=== PATIENT | female | born 1990 | race Caucasian/White ===

== ENCOUNTER 2017-05-26 13:07 | Emergency (ER) | payer SELFPAY ==
[2017-05-26 14:01] VITALS: BP 118/58; PULSE 71
[2017-05-26 14:04] VITALS: O2SAT 98
--- NOTE | 2017-05-26 14:04 | ERPHSYRPT ---
- History of Present Illness Time Seen by Provider: 05/26/17 13:53 Source: patient Patient Subjective Stated Complaint: PT REPORTS DENTAL PAIN ON RIGHT SIDE OF MOUTH-REPORTS FEELS LIKE THERE IS PRESSURE ON FRONT TEETH-REPORTS EARACHE TO RIGHT EAR-DENIES DRAINAGE-UNSURE OF FEVER Triage Nursing Assessment: PT PINK WARM ET [id number] CARRIES NOTED-NO OBVIOUS SWELLING NOTED Physician History: CC: toothache Hx: 27 y/o patient of Dr Darling with right upper toothache for a few days. Nt better with ibuprofen. She has had problems with this tooth in the past and may need root canal. Called dentist but can not be seen until Thur. She is on wait list. No fever, diff breathing or vomiting. ALL: Sulfa LMP 1 week ago Meds: None Works [place] Severity: moderate ENT Location: dental Allergies/Adverse Reactions: Sulfa (Sulfonamide Antibiotics) Allergy (Intermediate, Verified 05/26/17 13:16) Rash raspberry Allergy (Verified 05/26/17 13:16) strawberry Allergy (Verified 05/26/17 13:16) adhesive tape Adverse Reaction (Verified 05/26/17 13:16) Hx Tetanus, Diphtheria Vaccination/Date Given: Yes Hx Influenza Vaccination/Date Given: Yes (2015) Hx Pneumococcal Vaccination/Date Given: No Immunizations Up to Date: Yes - Review of Systems Constitutional: No Fever, No Chills Ears, Nose, & Throat: Mouth Pain, No Throat Pain Respiratory: No Dyspnea Abdominal/Gastrointestinal: No Nausea, No Vomiting Skin: No Rash - Past Medical History Pertinent Past Medical History: Yes Neurological History: Seizures ENT History: No Pertinent History Cardiac History: No Pertinent History Respiratory History: No Pertinent History Endocrine Medical History: No Pertinent History Musculoskeletal History: Arthritis GI Medical History: No Pertinent History History: No Pertinent History Psycho-Social History: No Pertinent History Female Reproductive Disorders: Other Other Medical History: Ovarian Cyst, REMOVED 06/2015. STATES NO SEIZURES SINCE LITTLE. - Past Surgical History Past Surgical History: Yes Neuro Surgical History: No Pertinent History Cardiac: No Pertinent History Respiratory: No Pertinent History Gastrointestinal: Cholecystectomy Genitourinary: No Pertinent History Musculoskeletal: No Pertinent History Female Surgical History: Other Other Surgical History: Ovarian Cyst removal, left ovary, partial ovary removal at time of sx 06/2015 - Social History Smoking Status: Former smoker How long have you smoked: 1.5 years Exposure to second hand smoke: Yes Drug Use: none Patient Lives Alone: No Significant Family History: diabetes - Female History Hx Last Menstrual Period: LAST WK - Nursing Vital Signs Nursing Vital Signs: Initial Vital Signs Temperature 98.4 F 05/26/17 13:11 Pulse Rate 74 05/26/17 13:11 Respiratory Rate 20 05/26/17 13:11 Blood Pressure 122/66 05/26/17 13:11 O2 Sat by Pulse Oximetry 98 05/26/17 13:11 Pain Scale Pain Intensity 10 - Physical Exam General Appearance: alert Eye Exam: bilateral eye: PERRL, EOMI Throat Exam: pharynx normal, dental tenderness (right upper lateral incisor, no swelling, not loose, no facial cellulitis) Neck Exam: normal inspection, non-tender, supple Cardiovascular/Respiratory Exam: normal breath sounds, regular rate/rhythm Neurologic Exam: alert, oriented x 3, cooperative Skin Exam: warm, dry, No rash SpO2 Interpretation: normal SpO2: 98 Oxygen Delivery: Room Air - Course Nursing assessment & vital signs reviewed: Yes - Progress Progress Note: 05/26/17 14:02 Advised dental follow up. Counseled pt/family regarding: diagnosis, need for follow-up - Departure Time of Disposition: 14:02 Departure Disposition: Home Clinical Impression: Toothache Condition: Stable Critical Care Time: No Referrals: LILIAN PHELAN [Primary Care Provider] - Instructions: Dental Pain Additional Instructions: Rx pen Rx ibuprofen Rx codiene Follow up with dentist as soon as possible Prescriptions: Ibuprofen 600 mg PO Q6H PRN PRN #24 tablet PRN Reason: Pain Codeine Phosphate/APAP #3 [Tylenol #3 Tablet] 1 tab PO Q4-6HPRN PRN #10 tablet PRN Reason: Pain Penicillin V Potassium 500 mg PO QID #40 tablet
== END 2017-05-26 14:20 | disposition home or self-care (01) ==
LOC: ED 13:07
DX: K08.89 Other specified disorders of teeth and supporting structures (principal)
CPT/HCPCS: 99282

== ENCOUNTER 2018-03-05 15:37 | Observation (INO) | payer MEDICAID ==
[2018-03-05 16:30] VITALS: BP 118/68; PULSE 88
[2018-03-05 17:21] LABS: Amphetamine,Urine NEGATIVE (NEGATIVE); Barbiturate,Urine NEGATIVE (NEGATIVE); Benzodiazepine,Urine NEGATIVE (NEGATIVE); Cocaine,Urine NEGATIVE (NEGATIVE); Methadone,Urine NEGATIVE (NEGATIVE); Opiate,Urine NEGATIVE (NEGATIVE); PCP,Urine NEGATIVE (NEGATIVE); THC,Urine NEGATIVE (NEGATIVE)
== END 2018-03-05 20:20 | disposition home or self-care (01) ==
LOC: UNDOADMOB 15:37 → OB 15:37 → UNDODISOB 20:20
PROVIDERS: ADMIT Family Medicine; ATTEND Family Medicine
DX: Z34.81 Encounter for supervision of other normal pregnancy, first trimester (principal)
CPT/HCPCS: 80307; G0378

== ENCOUNTER 2018-03-14 02:59 | Inpatient (IN) | payer MEDICAID ==
[2018-03-14 04:15] LABS: Amphetamine,Urine NEGATIVE (NEGATIVE); Barbiturate,Urine NEGATIVE (NEGATIVE); Benzodiazepine,Urine NEGATIVE (NEGATIVE); Cocaine,Urine NEGATIVE (NEGATIVE); Methadone,Urine NEGATIVE (NEGATIVE); Opiate,Urine NEGATIVE (NEGATIVE); PCP,Urine NEGATIVE (NEGATIVE); THC,Urine NEGATIVE (NEGATIVE)
[2018-03-14 04:17] LABS: BASOPHIL % 0.2 % (0.0-0.4); Basophil (Absolute #) 0.02 (0-0.4); Eosinophil % 1.7 % (0.00-5.0); Eosinophil (Absolute #) 0.14 (0-0.5); Granulocyte Absolute (ANC) 5.91 (1.4-6.9); Granulocytes % 70.6 % (36.0-66.0); Hematocrit 37.7 % (35-47); Lymphocyte (Absolute #) 1.32 (1.0-4.6); Lymphocytes % 15.8 % (24.0-44.0); Mean Cell Volume 94.5 fl (78-100); Mean Corpuscular Hgb Concent. 34.5 g/dl (32-36); Mean Platelet Volume 11.8 fl (6-9.5); Monocyte (Absolute #) 0.98 (0.0-1.3); Monocytes % 11.7 % (0.0-12.0); Platelet Count 206 K/mm3 (150-450); Red Blood Count 3.99 M/mm3 (4.1-5.4); Red Cell Distribution Width 12.6 % (11.5-14.0); White Blood Count 8.4 K/mm3 (4.0-10.5)
[2018-03-14 04:18] LABS: Mean Corpuscular Hemoglobin 32.5 pg (26-32)
[2018-03-14] MEDS ORDERED: PITOCIN 30 UNITS/ LR 500 ML 500 ML IV SCH (04:30)
[2018-03-14] MEDS ORDERED: Lactated Ringers 1,000 ML IV ONE (04:35)
[2018-03-14] MEDS: Lactated Ringers 1,000 ML IV SCH (04:38)
[2018-03-14] MEDS ORDERED: XYLOCAINE 1% HCL 20 ML MDV ONE (04:47)
[2018-03-14] MEDS ORDERED: Dermoplast Spray TP PRN (07:06)
[2018-03-14] MEDS ORDERED: Mylicon 80MG PO PRN (07:06)
[2018-03-14] MEDS ORDERED: Dulcolax 10 MG SUPP PR PRN (07:06)
[2018-03-14] MEDS ORDERED: Anucort-HC SUPPOSITORY PR PRN (07:06)
[2018-03-14] MEDS ORDERED: TUCKS TP PRN (07:06)
[2018-03-14] MEDS ORDERED: CORTISONE 1% CREAM TP PRN (07:06)
[2018-03-14] MEDS ORDERED: LANSINOH 40 GM TOP PRN (07:06)
[2018-03-14] MEDS ORDERED: NORCO 5/325 MG PO PRN (07:06)
[2018-03-14] MEDS: MOTRIN 400 MG PO PRN (07:24)
--- NOTE | 2018-03-14 08:48 | XRAY ---
Indication: Pain with bleeding. Limited 2-dimensional OB ultrasound performed. Comparison: October 31, 2017. Again there is a single viable intrauterine now in cephalic presentation. heart rate 122 BPM. Visualized stomach and bladder are unremarkable. Placenta is maternal left extending anteriorly and posterior without abruption/previa. No abnormal retroplacental fluid collection. BPD measures 8.91 cm corresponding to 36 weeks 0 days. HC measures 32.67 cm corresponding to 37 weeks 0 days. AC measures 34.06 cm corresponding to 38 weeks 0 days. FL measures 7.60 cm corresponding to 38 weeks 6 days. MANDY is 10.1 cm. Impression: Again single viable intrauterine with mean gestational age 37 weeks 3 days. There has been progression of with fetus now measuring 9 days smaller. Nothing acute. Comment: Preliminary report was given.
[2018-03-14] MEDS: Colace 100 MG PO SCH ×2 (16:39→21:35)
[2018-03-14] MEDS: FERREX 150 PO SCH (16:39)
[2018-03-15] MEDS ORDERED: CEFAZOLIN 2 GM-D5W BAG** 2 GM/50 ML ML IV SCH (04:20)
[2018-03-15] MEDS ORDERED: Sensorcaine 0.25% 10 ML ONE (05:39)
[2018-03-15] MEDS ORDERED: Lactated Ringers 2,000 ML IV ONE (05:39)
[2018-03-15 05:43] LABS: BASOPHIL % 0.1 % (0.0-0.4); Basophil (Absolute #) 0.01 (0-0.4); Eosinophil % 1.9 % (0.00-5.0); Eosinophil (Absolute #) 0.16 (0-0.5); Granulocyte Absolute (ANC) 6.24 (1.4-6.9); Granulocytes % 74.8 % (36.0-66.0); Hematocrit 32.7 % (35-47); Hemoglobin 11.1 gm/dl (12.0-16.0); Lymphocyte (Absolute #) 1.06 (1.0-4.6); Lymphocytes % 12.7 % (24.0-44.0); Mean Cell Volume 96.5 fl (78-100); Mean Corpuscular Hemoglobin 32.7 pg (26-32); Mean Corpuscular Hgb Concent. 33.9 g/dl (32-36); Mean Platelet Volume 11.7 fl (6-9.5); Monocyte (Absolute #) 0.88 (0.0-1.3); Monocytes % 10.5 % (0.0-12.0); Platelet Count 175 K/mm3 (150-450); Red Blood Count 3.39 M/mm3 (4.1-5.4); Red Cell Distribution Width 12.6 % (11.5-14.0); White Blood Count 8.4 K/mm3 (4.0-10.5)
[2018-03-15] MEDS: Lactated Ringers 1,000 ML IV SCH ×2 (05:49→06:57)
[2018-03-15 06:13] LABS: INR 0.91 (0.8-3.0)
[2018-03-15 06:16] LABS: PTT 25.2 SECONDS (25.3-37.0)
[2018-03-15] MEDS ORDERED: Pepcid 20 MG VIAL IV SCH (06:30)
[2018-03-15] MEDS ORDERED: Reglan 10 MG/2 ML IV SCH (06:30)
--- NOTE | 2018-03-15 09:41 | OP ---
SURGERY DATE/TIME: 03/15/2018815 PREOPERATIVE DIAGNOSIS: Desires permanent sterilization. POSTOPERATIVE DIAGNOSIS: Desires permanent sterilization. PROCEDURES: bilateral tubal ligation. SURGEON: Loc Peguero M.D. ANESTHESIA: Spinal by Jaime Romero CRNA. ESTIMATED BLOOD LOSS: Minimal. SPECIMENS: Bilateral fallopian tube segments. DESCRIPTION OF PROCEDURE: After informed, written consent was obtained, the patient was taken to the OP. Prior to her signing consent, I discussed with her risk of bleeding, risk of infection, damage to surrounding tissues and accepted failure rate of 1:300 and permanent nature of this procedure and she elected to proceed. She underwent spinal anesthesia and was prepped and draped in usual sterile fashion. 0.25% Marcaine used to infiltrate the site of incision with 6 cc used in total. Infraumbilical horizontal skin incision was made by knife and carried down to the subcutaneous fat to the fascia. The fascia was grasped with hemostats and carefully entered using Metzenbaum scissors. Next, the left fallopian tube was identified, pulled up and grasped with a Yves. It was followed down to the fimbrial edge to insure that it was indeed fallopian tube. Next, electrocautery was used to create a window in the mesoappendix and chromic tie was passed through the opening and proximal-distal tube segments were then ligated with suture. The interceding tube segment dissected free with Metzenbaum scissors and the free edge of the tube was cauterized with electrocautery. Good hemostasis was achieved. Next, the right fallopian tube was identified and carried down to the fimbrial edge in the same fashion and ligated, cut and burned just the same as the left side. Good hemostasis was achieved. There were no complications. Finally the fascia was closed with 0 Vicryl in running fashion with good closure and good hemostasis. The subcutaneous fat was irrigated with warm, sterile saline and the skin layer was closed with 4-0 undyed Vicryl in running subcuticular fashion. Steri-Strips and occlusive dressing were placed over the incision. The patient was transferred to the recovery room in good condition.
[2018-03-15] MEDS ORDERED: DEMEROL 75 MG IM PRN (10:27)
[2018-03-15] MEDS ORDERED: Phenergan 25 MG INJ IM PRN (10:27)
[2018-03-15] MEDS: TYLENOL EXTRA STRENGTH 500 MG PO PRN ×3 (10:30→22:01)
[2018-03-15] MEDS ORDERED: Dextrose 5%-Lr IV Solution 1000 ML 1,000 ML IV SCH (10:30)
[2018-03-15 11:31] LABS: Appearance CLEAR (CLEAR); Bilirubin NEGATIVE (NEGATIVE); Blood 50 Ery/ul (0-5); Glucose NEGATIVE (NEGATIVE); Ketones NEGATIVE (NEGATIVE); Leukocyte Esterase TRACE (NEGATIVE); Nitrite NEGATIVE (NEGATIVE); Protein,Urine Dip NEGATIVE (Negative); Urobilinogen NORMAL mg/dL (0-1)
[2018-03-15 11:32] LABS: Bacteria FEW /HPF (NEGATIVE); Epithelial Cells FEW /HPF (FEW); RBC 0-2 /HPF (0-2)
[2018-03-15] MEDS: MOTRIN 400 MG PO PRN ×2 (12:36→18:34)
[2018-03-15] MEDS ORDERED: Marcaine Spinal Ampul IJ ONE (14:34)
[2018-03-15] MEDS ORDERED: Xylocaine-Mpf 2% 5 Ml Vial IJ ONE (14:34)
[2018-03-15] MEDS: FERREX 150 PO SCH (14:54)
[2018-03-15] MEDS: Colace 100 MG PO SCH ×2 (14:54→21:57)
[2018-03-15 17:10] VITALS: O2SAT 100
--- NOTE | 2018-03-16 08:06 | PCM.DS ---
Discharge Summary Date of Admission: 03/14/18 04:30 Admitting Physician: RADHA HOYOS Primary Care Provider: RADHA HOYOS Allergies Allergies Sulfa (Sulfonamide Antibiotics) Allergy (Intermediate, Verified 03/05/18 16:38) Rash raspberry Allergy (Verified 03/05/18 16:38) hives and throat closes strawberry Allergy (Verified 03/05/18 16:38) hives and throat closes adhesive tape Adverse Reaction (Verified 03/05/18 16:38) blisters on skin Hospital Summary - Hospital Course Hospital Course: doing well at this time, had on 03/14 and pp tubal on 03/15. mild lochia, pain controlled on tylenol and ibuprofen. . - Vitals & Intake/Output Vital Signs: Vital Signs Temperature 97.7 F 03/16/18 02:00 Pulse Rate 88 03/16/18 02:00 Respiratory Rate 20 03/16/18 02:00 Blood Pressure 104/64 03/16/18 02:00 O2 Sat by Pulse Oximetry 100 03/15/18 13:06 Intake & Output: Intake & Output 03/13/18 03/14/18 03/15/18 03/16/18 11:59 11:59 11:59 11:59 Intake Total 687 Balance 687 Weight 107.955 kg 107.955 kg - Lab Result Diagrams: 03/15/18 05:32 Lab Results-Last 24 Hrs: Lab Results-Last 24 Hours 03/15/18 Range/Units 09:35 Ur Collection Type CATH Urine Color YELLOW (YELLOW) Urine Appearance CLEAR (CLEAR) Urine pH 8.0 (5-6) Ur Specific [place] 1.010 (1.005-1.025) Urine Protein NEGATIVE (Negative) Urine Ketones NEGATIVE (NEGATIVE) Urine Blood 50 (0-5) Koffi/ul Urine Nitrite NEGATIVE (NEGATIVE) Urine Bilirubin NEGATIVE (NEGATIVE) Urine Urobilinogen NORMAL (0-1) mg/dL Ur Leukocyte Esterase TRACE (NEGATIVE) Urine Microscopic RBC 0-2 (0-2) /HPF Urine Microscopic WBC 2-5 (0-5) /HPF Ur Epithelial Cells FEW (FEW) /HPF Urine Bacteria FEW (NEGATIVE) /HPF Urine Glucose NEGATIVE (NEGATIVE) mg/dL Specimen Received 03/15 1030 Micro Results-Entire Visit: Microbiology 03/15/18 09:35 Urine Culture - Preliminary Urine, Catheterized NO GROWTH TO DATE Discharge Exam General Appearance: no apparent distress, alert Respiratory Exam: normal breath sounds, lungs clear, No respiratory distress Cardiovascular Exam: regular rate/rhythm, normal heart sounds Gastrointestinal/Abdomen Exam: soft, other (infraumbilical incision clean, dry, intact), No tenderness, No mass Extremity Exam: normal inspection, normal range of motion Final Diagnosis/Problem List - Final Discharge Diagnosis/Problem (1) Vaginal delivery Current Visit: Yes Status: Acute (2) Tubal ligation status Current Visit: Yes Status: Acute - Discharge Disposition: Home, Self-Care Condition: Stable Prescriptions: No Action Pedi Multivit No.25/Folic Acid [Flintstones Multivit Chew Tab] 300 mcg PO DAILY Follow up with: RADHA HOYOS MD [Primary Care Provider] - 1 Week
[2018-03-16] MEDS: TYLENOL EXTRA STRENGTH 500 MG PO PRN (08:19)
[2018-03-16] MEDS: FERREX 150 PO SCH (10:44)
[2018-03-16] MEDS: Colace 100 MG PO SCH (10:44)
[2018-03-16] MEDS: MOTRIN 400 MG PO PRN (10:46)
[2018-03-16 10:49] VITALS: BP 119/83; PULSE 74
[2018-03-16] MEDS ORDERED: Versed 2 MG/2 ML Injection IV ONE (16:30)
== END 2018-03-16 13:00 | disposition home or self-care (01) | DRG 767 ==
LOC: OB 02:59 → OBSVTOIN 04:30
PROVIDERS: ADMIT Family Medicine; ATTEND Family Medicine
PROC: 10E0XZZ Delivery of Products of Conception, External Approach (ICD-10-PCS; principal; 2018-03-14)
PROC: 0UB70ZZ Excision of Bilateral Fallopian Tubes, Open Approach (ICD-10-PCS; 2018-03-15)
DX: O80 Encounter for full-term uncomplicated delivery (principal); Z3A.38 38 weeks gestation of pregnancy; Z37.0 Single live birth; Z30.2 Encounter for sterilization
CPT/HCPCS: 36415; 76805; 80307; 81000; 85025; 85610; 85730; 87086; 88302; 94799; G0378; J0690; J2250; J2590; A9270-GY

== ENCOUNTER 2023-02-25 21:01 | Emergency (ER) | payer OTHER ==
--- NOTE | 2023-02-25 21:04 | ERPHSYRPT ---
- History of Present Illness Time Seen by Provider: 02/25/23 21:04 Source: patient, EMS, other (Paramedics gave independent history) Exam Limitations: no limitations Physician History: Patient was moving around and felt a pop in her mid spine at the lumbar level. There was pain initially but then she stopped doing the activity and sat in a chair. Approximately 45 minutes prior to arrival she got up to get into a car and was having excruciating pain. She has had this type of thing in the past. She has had no back surgeries. She is not on any medication. She is allergic to sulfa raspberries, strawberries and adhesive tape. She denies chest pain and she denies shortness of breath. She has no abdominal pain. She has no urinary tract infection symptoms. Patient was brought into the emergency department by the paramedics. Timing/Duration: today Method of Injury: unknown Quality: sharp, stabbing Back Pain Location: lumbar spine, paraspinous muscles Severity of Pain-Max: moderate Severity of Pain-Current: moderate Modifying Factors: Improves With: movement Associated Symptoms: lower back pain, muscle spasms, No urinary incontinence, No loss of bowel control, No nausea, No vomiting, No numbness in legs/feet, No weakness, No sensory/motor loss Previous symptoms: same symptoms as today Allergies/Adverse Reactions: Sulfa (Sulfonamide Antibiotics) Allergy (Intermediate, Verified 03/17/21 12:05) Rash raspberry Allergy (Verified 03/17/21 12:05) Tightness of Throat hives and throat closes strawberry Allergy (Verified 03/17/21 12:05) Hives hives and throat closes adhesive tape Adverse Reaction (Verified 03/17/21 12:05) blisters on skin Hx Tetanus, Diphtheria Vaccination/Date Given: Yes Hx Influenza Vaccination/Date Given: Yes (2015) Hx Pneumococcal Vaccination/Date Given: No Travel Risk - International Travel Have you traveled outside of the country in past 3 weeks: No - Coronavirus Screening Are you exhibiting any of the following symptoms?: No Close contact with a COVID-19 positive Pt in past 14-21 Days: No - Review of Systems Constitutional: No Symptoms Eyes: No Symptoms Ears, Nose, & Throat: No Symptoms Respiratory: No Symptoms Cardiac: No Symptoms Abdominal/Gastrointestinal: No Symptoms Genitourinary Symptoms: No Symptoms Musculoskeletal: Back Pain Skin: No Symptoms Neurological: No Symptoms Psychological: No Symptoms Endocrine: No Symptoms Hematologic/Lymphatic: No Symptoms Immunological/Allergic: No Symptoms All Other Systems: Reviewed and Negative - Past Medical History Pertinent Past Medical History: Yes Neurological History: Seizures ENT History: No Pertinent History Cardiac History: No Pertinent History Respiratory History: No Pertinent History Endocrine Medical History: No Pertinent History Musculoskeletal History: Arthritis GI Medical History: No Pertinent History History: No Pertinent History Psycho-Social History: No Pertinent History Female Reproductive Disorders: Other Other Medical History: Ovarian Cyst, REMOVED 06/2015. STATES NO SEIZURES SINCE LITTLE. - Past Surgical History Past Surgical History: Yes Neuro Surgical History: No Pertinent History Cardiac: No Pertinent History Respiratory: No Pertinent History Gastrointestinal: Cholecystectomy Genitourinary: No Pertinent History Musculoskeletal: No Pertinent History, Other Female Surgical History: Other Other Surgical History: Ovarian Cyst removal, left ovary, partial ovary removal at time of sx 06/2015, bilateral corrective foot surgery - Social History Smoking Status: Never smoker How long have you smoked: 1.5 years Exposure to second hand smoke: No Drug Use: none Patient Lives Alone: No Significant Family History: diabetes - Nursing Vital Signs Nursing Vital Signs: Initial Vital Signs Blood Pressure 107/87 02/25/23 21:03 O2 Sat by Pulse Oximetry 99 02/25/23 21:03 Pain Scale Pain Intensity [Lower Back] 10 Pain Intensity 8 - Physical Exam General Appearance: no apparent distress, alert, anxiety, obese Eye Exam: PERRL/EOMI, eyes nml inspection Ears, Nose, Throat Exam: normal ENT inspection, moist mucous membranes Neck Exam: normal inspection, non-tender, supple, full range of motion Respiratory Exam: airway intact, No chest tenderness, No respiratory distress Gastrointestinal Exam: soft, normal bowel sounds, No tenderness Pelvic Exam: not done Rectal Exam: not done Back Exam: normal inspection, decreased range of motion, muscle spasm, point tenderness (At the vertebral of the lumbar level. There is tenderness to palpation.), No CVA tenderness Extremity Exam: normal inspection Neurologic Exam: alert, oriented x 3, cooperative, returns clerk II-XII nml as tested, normal mood/affect Skin Exam: normal color, warm, dry Lymphatic Exam: No adenopathy SpO2 Interpretation: normal O2 Delivery: Room Air - Course Nursing assessment & vital signs reviewed: Yes Ordered Tests: Active Orders 24 hr Category Date Time Status LUMBAR LIMITED (2 OR 3 VIEWS) Stat Exams 02/25/23 21:13 Taken Medication Summary Discontinued Medications Generic Name Dose Route Start Last Admin Trade Name Alexis PRN Reason Stop Dose Admin Dexamethasone Sodium Phosphate 8 mg 02/25/23 21:12 02/25/23 21:18 Dexamethasone Sod Phosphate 10 Mg/Ml IM 02/25/23 21:13 8 mg STAT ONE Administration Dexamethasone Sodium Phosphate Confirm 02/25/23 21:17 Dexamethasone Sod Phosphate 10 Mg/Ml Administered 02/25/23 21:18 Dose 10 mg .ROUTE .STK-MED ONE Orphenadrine Citrate 60 mg 02/25/23 21:12 02/25/23 21:18 Orphenadrine Citrate 60 Mg/2 Ml Vial IM 02/25/23 21:13 60 mg STAT ONE Administration Orphenadrine Citrate Confirm 02/25/23 21:17 Orphenadrine Citrate 60 Mg/2 Ml Vial Administered 02/25/23 21:18 Dose 60 mg .ROUTE .STK-MED ONE Oxycodone/Acetaminophen 1 tab 02/25/23 21:14 02/25/23 21:18 Oxycodone Hcl/Apap 5 Mg/325 Mg Tablet PO 02/25/23 21:15 1 tab STAT STA Administration Oxycodone/Acetaminophen Confirm 02/25/23 21:17 Oxycodone Hcl/Apap 5 Mg/325 Mg Tablet Administered 02/25/23 21:18 Dose 1 tab .ROUTE .STK-MED ONE - Progress Progress: improved, pain not gone completely, re-examined Progress Note: 02/25/23 22:06 Lumbar spine x-ray was interpreted by me. I do not appreciate a fracture or subluxation. This patient's medical issue is 1 of low complexity. The level of complexity and the work-up performed is based on review of the patient's past medical history, review of the patient's medication list, review the patient's drug allergy list, history of present illness and findings on physical examination. The work-up in this patient is lumbar spine x-ray. I do not appreciate a fracture or subluxation on the lumbar spine x-ray. Patient will be given take- home [place] 10/325 number 2 tablets. She will also be provided with a prescription that will be remotely sent to her pharmacy for orphenadrine and prednisone. Patient is to follow-up with her primary care provider for further evaluation and management. Counseled pt/family regarding: diagnosis, need for follow-up, rad results Medical Desision Making - Independent Historian Additional History obtained from: [employer]/EMT - Social Determinants of Health Limited access to: transportation - Diagnostic Testing Diagnostic test were ordered, analyzed, and reviewed by me: Yes Radiological Interpretation: Interpreted by me - Risk of complications The pt has a mod risk of morbidity or mortality based on: Need for prescription drug management - Departure Departure Disposition: Home Clinical Impression: Acute exacerbation of chronic low back pain Condition: Stable Critical Care Time: No Referrals: YOLY MILLIGAN NP [Primary Care Provider] - Follow up/PCP as directed Additional Instructions: Take your medication as prescribed. Follow-up with your primary care provider for further evaluation and management call your provider on 02/27/2023 to make arrange for follow-up appointment in the next 3 to 5 days. Prescriptions: Prednisone 10 mg [Deltasone 10 mg] 10 mg PO TID #12 tablet Orphenadrine Citrate 100 mg [Norflex 100 MG Tablet] 100 mg PO BID #10 tab
[2023-02-25] MEDS ORDERED: DECADRON 10MG INJ. IM ONE (21:12)
[2023-02-25] MEDS ORDERED: Norflex 60 MG/2 ML IM ONE (21:12)
[2023-02-25] MEDS ORDERED: PERCOCET TABLET 5/325MG PO STA (21:14)
[2023-02-25] MEDS ORDERED: DECADRON 10MG INJ. ONE (21:17)
[2023-02-25] MEDS ORDERED: Norflex 60 MG/2 ML ONE (21:17)
[2023-02-25] MEDS ORDERED: PERCOCET TABLET 5/325MG ONE (21:17)
[2023-02-25] MEDS ORDERED: HYDROCODONE-ACETAMIN 10-325 MG PO PRN (22:09)
[2023-02-25] MEDS ORDERED: HYDROCODONE-ACETAMIN 10-325 MG ONE (22:39)
[2023-02-25 22:45] VITALS: BP 112/86; PULSE 90; O2SAT 99
--- NOTE | 2023-02-26 07:13 | XRAY ---
Indication: Lumbar pain following injury. Comparison: None 3 view lumbar spine demonstrates 5 lumbar segments in normal alignment with minimal/mild L4-S1 degenerative changes. No other bony, articular, or soft tissue abnormalities
== END 2023-02-25 22:54 | disposition home or self-care (01) ==
LOC: ED 21:01
DX: G89.29 Other chronic pain (principal); M54.50 Low back pain, unspecified; Z79.52 Long term (current) use of systemic steroids; Z59.82 Transportation insecurity
CPT/HCPCS: 72100; 96372; 99283; J1100; J2360; A9270-GY